=== PATIENT | male | born 1990 | race Hispanic/Latino ===

== ENCOUNTER 2023-01-25 10:52 | Emergency (ER) | payer OTHER ==
[2023-01-25] MEDS ORDERED: NA CHLORIDE 0.9% 2,000 ML ONE (11:28)
[2023-01-25] MEDS ORDERED: ONDANSETRON 4 MG/2 ML VIAL ONE (11:28)
[2023-01-25] MEDS ORDERED: MECLIZINE HCL 12.5 MG TAB ONE (11:28)
[2023-01-25 11:32] LABS: Absolute Lymphocytes (CBC) 0.9 K/uL (0.7-4.9); Hematocrit 42.8 % (39.6-49.0); Lymphocytes % 8.7 % (15.3-44.8); MCV 90.7 fL (80-100); MPV 7.1 fL (7.6-11.3); RBC Red Blood Cell Count 4.72 M/uL (4.33-5.43)
[2023-01-25 11:47] LABS: Albumin 3.7 g/dL (3.4-5.0); Bilirubin Total 0.3 mg/dL (0.2-1.0); Magnesium 1.9 mg/dL (1.6-2.4); Potassium 3.6 mEq/L (3.5-5.1); Protein, Total 7.9 g/dL (6.4-8.2)
--- NOTE | 2023-01-25 12:17 | ER ---
Nurse's Notes [facility] Name: Kenton Lorenzo Age: 32 yrs Sex: Male : 1990 Arrival Date: 01/25/2023 Time: 10:52 Bed 7 Private MD: Diagnosis: Nausea with vomiting, unspecified Presentation: 01/25 11:03 Chief complaint: Patient states: N/V that began 2 days ago. SHRESTHA yesterday. Denies fever. ss Coronavirus screen: Client denies travel out of the [place] in the last 14 days. Ebola Screen: Patient denies exposure to infectious person. Patient denies travel to an Ebola-affected area in the 21 days before illness onset. Initial Sepsis Screen: Does the patient meet any 2 criteria? No. Patient's initial sepsis screen is negative. Does the patient have a suspected source of infection? No. Patient's initial sepsis screen is negative. Risk Assessment: Do you want to hurt yourself or someone else? Patient reports no desire to harm self or others. Onset of symptoms was January 23, 2023. 11:03 Method Of Arrival: Ambulatory 11:03 Acuity: CRISTIAN 3 ss Historical: - Allergies: 11:06 No Known Allergies; ss - PMHx: 11:06 None; ss - PSHx: 11:06 L eye; ss - Immunization history:: Client reports receiving the 2nd dose of the Covid vaccine. - Social history:: Smoking status: Patient denies any tobacco usage or history of. - Family history:: not pertinent. Screenin:07 [facility] ED Fall Risk Assessment (Adult) History of falling in the last 3 months, mb9 including since admission No falls in past 3 months (0 pts) Confusion or Disorientation No (0 pts) Intoxicated or Sedated No (0 pts) Impaired Gait No (0 pts) Mobility Assist Device Used No (0 pt) Altered Elimination No (0 pt) Score/Fall Risk Level 0 - 2 = Low Risk Oriented to surroundings, Maintained a safe environment, Educated pt \T\ family on fall prevention, incl call for assistance when getting out of bed. Abuse screen: Denies threats or abuse. Nutritional screening: No deficits noted. Tuberculosis screening: No symptoms or risk factors identified. Assessment: 11:08 General: Appears uncomfortable, Behavior is calm, cooperative, appropriate for age. mb9 Pain: Complains of pain in abdomen Pain radiates to LLQ and LUQ Pain currently is 7 out of 10 on a pain scale. Quality of pain is described as throbbing, Pain began 1 day ago. Is continuous. Neuro: Cabrera Agitation-Sedation Scale (RASS): 0 - Alert and Calm Level of Consciousness is awake, alert, obeys commands, Oriented to person, place, time, situation, Appropriate for age. Cardiovascular: Patient's skin is warm and dry. Respiratory: Airway is patent Respiratory effort is even, unlabored, Respiratory pattern is regular, symmetrical. GI: Abdomen is flat, non-distended, Bowel sounds present X 4 quads. Abd is soft Abdomen is tender to palpation in left upper quadrant and left lower quadrant Reports nausea, vomiting. : No signs and/or symptoms were reported regarding the genitourinary system. Derm: Skin is pink, warm \T\ dry. Musculoskeletal: Range of motion: intact in all extremities. 12:31 Reassessment: No changes from previously documented assessment. Patient and/or family mb9 updated on plan of care and expected duration. Pain level reassessed. Patient is alert, oriented x 3, equal unlabored respirations, skin warm/dry/pink. Vital Signs: 11:03 BP 117 / 77; Pulse 90; Resp 16; Temp 98(TE); Pulse Ox 97% on R/A; Weight 58.97 kg; ss Height 5 ft. 2 in. ; Pain 0/10; 11:27 BP 122 / 89; Pulse 84; Resp 18; Pulse Ox 99% ; mb9 12:31 BP 128 / 86; Pulse 78; Resp 18; Pulse Ox 100% ; mb9 11:03 Body Mass Index 23.78 (58.97 kg, 157.48 cm) ss 11:03 Pain Scale: Adult ss ED Course: 10:56 Patient arrived in ED. im 10:57 Arm band placed on. mb9 10:57 Placed in gown. Bed in low position. Call light in reach. Side rails up X 1. Client mb9 placed on continuous cardiac and pulse oximetry monitoring. NIBP monitoring applied. 10:58 Isidro Rascon MD is Attending Physician. rt 11:05 Allyssa Ziegler RN is Primary Nurse. mb9 11:05 Inserted saline lock: 20 gauge in right antecubital area, using aseptic technique. mb9 11:06 Triage completed. ss 11:07 No provider procedures requiring assistance completed. mb9 11: Magnesium Sent. mb9 11: Lipase Sent. mb9 11: CMP Sent. mb9 11: CBC with Diff Sent. mb9 12:31 IV discontinued, intact, bleeding controlled, No redness/swelling at site. Pressure mb9 dressing applied. Administered Medications: : Drug: NS 0.9% IV 1000 ml Route: IV; Rate: 1 bolus; Site: right antecubital; mb9 11:26 Drug: Meclizine PO 50 mg Route: PO; mb9 12:30 Follow up: Response: No adverse reaction mb9 11: Drug: Ondansetron IVP 4 mg Route: IVP; Site: right antecubital; mb9 12:30 Follow up: Response: No adverse reaction mb9 11: Drug: NS 0.9% IV 1000 ml Route: IV; Rate: 1 bolus; Site: right antecubital; mb9 Medication: 11: VIS not applicable for this client. mb9 Outcome: 12:17 Discharge ordered by . rt 12:31 Discharged to home ambulatory. mb9 12:31 Condition: stable 12:31 Discharge instructions given to patient, Instructed on discharge instructions, follow up and referral plans. Demonstrated understanding of instructions, follow-up care, medications, Prescriptions given X 1. 12:32 Patient left the ED. mb9 Signatures: Ena Quezada RN RN ss Allyssa Ziegler RN RN mb9 Isidro Rascon MD MD rt Kenia Stuart
--- NOTE | 2023-01-25 12:18 | EDPHYS ---
Physician Documentation [facility] Name: Kenton Lorenzo Age: 32 yrs Sex: Male : 1990 Arrival Date: 01/25/2023 Time: 10:52 Bed 7 Private MD: ED Physician Isidro Rascon HPI: 01/25 11:29 This 32 yrs old Male presents to ER via Ambulatory with complaints of rt Nausea/Vomiting. 11:30 Patient presents to the ED with 2 days of nausea, vomiting. She does report a rt dizziness. He reports a headache yesterday that is mostly gone today. It was generalized. Denies any abdominal pain. Denies other acute complaints at this time, symptoms are moderate in severity, no other aggravating or alleviating factors.. Historical: - Allergies: 11:06 No Known Allergies; ss - PMHx: 11: None; ss - PSHx: 11:06 L eye; ss - Immunization history:: Client reports receiving the 2nd dose of the Covid vaccine. - Social history:: Smoking status: Patient denies any tobacco usage or history of. - Family history:: not pertinent. ROS: 11:30 Constitutional: Negative for fever, chills, and weight loss, Cardiovascular: Negative rt for chest pain, palpitations, and edema, Respiratory: Negative for shortness of breath, cough, wheezing, and pleuritic chest pain, MS/Extremity: Negative for injury and deformity, Skin: Negative for injury, rash, and discoloration, Psych: Negative for depression, anxiety, suicide ideation, homicidal ideation, and hallucinations. 11:30 Abdomen/GI: Positive for nausea and vomiting, Negative for abdominal pain. 11:30 Neuro: Positive for dizziness, headache. Exam: 11:30 Constitutional: This is a well developed, well nourished patient who is awake, alert, rt and in no acute distress. Head/Face: Normocephalic, atraumatic. Chest/axilla: Normal chest wall appearance and motion. Nontender with no deformity. No lesions are appreciated. Cardiovascular: Regular rate and rhythm with a normal S1 and S2. No gallops, murmurs, or rubs. Normal PMI, no JVD. No pulse deficits. Respiratory: Lungs have equal breath sounds bilaterally, clear to auscultation and percussion. No rales, rhonchi or wheezes noted. No increased work of breathing, no retractions or nasal flaring. Abdomen/GI: Soft, non-tender, with normal bowel sounds. No distension or tympany. No guarding or rebound. No evidence of tenderness throughout. Skin: Warm, dry with normal turgor. Normal color with no rashes, no lesions, and no evidence of cellulitis. MS/ Extremity: Pulses equal, no cyanosis. Neurovascular intact. Full, normal range of motion. Neuro: Awake and alert, GCS 15, oriented to person, place, time, and situation. Cranial nerves II-XII grossly intact. Motor strength 5/5 in all extremities. Sensory grossly intact. Cerebellar exam normal. Normal gait. Psych: Awake, alert, with orientation to person, place and time. Behavior, mood, and affect are within normal limits. Vital Signs: 11:03 BP 117 / 77; Pulse 90; Resp 16; Temp 98(TE); Pulse Ox 97% on R/A; Weight 58.97 kg; ss Height 5 ft. 2 in. ; Pain 0/10; 11:27 BP 122 / 89; Pulse 84; Resp 18; Pulse Ox 99% ; mb9 12:31 BP 128 / 86; Pulse 78; Resp 18; Pulse Ox 100% ; mb9 11:03 Body Mass Index 23.78 (58.97 kg, 157.48 cm) ss 11:03 Pain Scale: Adult ss MDM: 11:08 Patient medically screened. rt 13:56 Differential diagnosis: Nonspecific abd pain, gastritis, pancreatitis. Data reviewed: rt vital signs, nurses notes, lab test result(s). I considered the following discharge prescriptions or medication management in the emergency department Medications were administered in the Emergency Department. See MAR. Test considered but Not performed: CT: Benign abdominal examination, stable labs, CT scan not indicated. Counseling: I had a detailed discussion with the patient and/or guardian regarding: the historical points, exam findings, and any diagnostic results supporting the discharge/admit diagnosis, lab results, radiology results, the need for outpatient follow up, to return to the emergency department if symptoms worsen or persist or if there are any questions or concerns that arise at home. Response to treatment: the patient's symptoms have resolved after treatment. 01/25 11:08 Order name: CBC with Diff; Complete Time: 11:50 rt 01/25 11:08 Order name: CMP; Complete Time: 11:50 rt 01/25 11:08 Order name: Lipase; Complete Time: 11:50 rt 01/25 11:08 Order name: Magnesium; Complete Time: 11:50 rt 01/25 11:09 Order name: IV Start; Complete Time: 11:10 mb9 Administered Medications: 11:26 Drug: NS 0.9% IV 1000 ml Route: IV; Rate: 1 bolus; Site: right antecubital; mb9 11:26 Drug: Meclizine PO 50 mg Route: PO; mb9 12:30 Follow up: Response: No adverse reaction mb9 11:26 Drug: Ondansetron IVP 4 mg Route: IVP; Site: right antecubital; mb9 12:30 Follow up: Response: No adverse reaction mb9 11:26 Drug: NS 0.9% IV 1000 ml Route: IV; Rate: 1 bolus; Site: right antecubital; mb9 Disposition Summary: 01/25/23 12:17 Discharge Ordered Location: Home rt Problem: new rt Symptoms: have improved rt Condition: Stable rt Diagnosis - Nausea with vomiting, unspecified rt Followup: rt - With: Private Physician - When: 2 - 3 days - Reason: Discharge Instructions: - Discharge Summary Sheet rt - Nausea and Vomiting, Adult rt Forms: - Work release form mb9 - Medication Reconciliation Form rt - Thank You Letter rt - Antibiotic Education rt - Prescription Opioid Use rt Prescriptions: - ondansetron 4 mg Oral Tablet,disintegrating - take 1 tablet by ORAL route every 6 hours; 18 tablet; Refills: 0, Product rt Selection Permitted Signatures: Dispatcher [employer] Ena Brooke RN RN Allyssa Ziegler RN RN mb9 Isidro Rascon MD MD rt
[2023-01-25 12:51] VITALS: TEMP 98
[2023-01-25 12:58] VITALS: BP 128/86; O2SAT 100
== END 2023-01-25 12:32 | disposition home or self-care (01) ==
LOC: ER 10:52
DX: R11.2 Nausea with vomiting, unspecified (principal); R42 Dizziness and giddiness
CPT/HCPCS: 85025; 36415; 83735; 83690; 80053; 96374; 99284; J8597; J2405; J7030